=== PATIENT | male | born 1935 ===

== ENCOUNTER 2022-01-23 11:26 | Emergency (ER) | payer OTHER, SELFPAY ==
[2022-01-23 11:42] VITALS: BP 119/61; PULSE 75; RESP 28; TEMP 38.1; O2SAT 97; BMI 23.7
--- NOTE | 2022-01-23 11:56 | DI.RAD.S_ITS ---
PROCEDURE: XR CHEST 1V INDICATIONS: suspected sepsis TECHNIQUE: One view of the chest was acquired. COMPARISON: [facility], CR, XR CHEST 1 VIEW, 10/20/2020, 1:35. FINDINGS: Surgical changes and devices: None. Lungs and pleura: Lungs are clear. No pleural effusions or pneumothorax. Mediastinum: Mediastinal contours appear normal. Heart size is normal. Bones and chest wall: No suspicious bony lesions. Overlying soft tissues appear unremarkable. Rotator cuff tendon repair of the right shoulder. IMPRESSION: No acute cardiopulmonary disease. Dictated by: Shelli Red M.D. on 01/23/2022 at 12:31 Approved by: Shelli Red M.D. on 01/23/2022 at 12:32
[2022-01-23 12:11] LABS: Add Manual Diff / Slide Review NO; Basophils Absolute Auto 0 /uL (0-100); Basophils Percent Auto 0.2 % (0-2); Eosinophils Absolute Auto 0 /uL (0-450); Eosinophils Percent Auto 0.4 % (2-4); Lymphocytes Absolute Auto 600 /uL (1100-4500); Lymphocytes Percent Auto 10.8 % (25-40); Mean Corpuscular HGB Conc 33.4 % (30-36); Mean Corpuscular Hemoglobin 32.4 PG (26-34); Mean Corpuscular Volume 97.1 fL (80-100); Monocytes Absolute Auto 600 /uL (0-900); Monocytes Percent Auto 10.6 % (3-14); Neutrophils Absolute Auto 4600 /uL (1500-7000); Platelet Count 176 X10^3/uL (150-400); Red Blood Cell Count 4.32 X10^6/uL (4.5-5.9); Red Cell Distribution Width 13.3 % (11.6-14.8); White Blood Cell Count 5.8 X10^3/uL (4.5-11.0)
[2022-01-23] MEDS: ACETAMINOPHEN 325 MG TABLET 650 MG PO (12:13)
[2022-01-23] MEDS: SODIUM CHLORIDE 0.9% 1,000 ML 1000 ML IV (12:14)
[2022-01-23 12:17] LABS: INR 1.1 (0.9-1.3); Prothrombin Time 12.4 SECONDS (10.1-12.7)
[2022-01-23 12:20] LABS: PTT Partial Thromboplastin Tim 31 SECONDS (26.4-36.2)
[2022-01-23 12:22] LABS: Alanine Aminotransferase 25 IU/L (<50); Albumin 4.4 g/dL (3.5-5.0); Albumin Globulin Ratio 1.5 (1.0-2.8); Alkaline Phosphatase 61 U/L (38-126); Aspartate Aminotransferase 40 IU/L (17-59); BUN Creatinine Ratio 20.8 (6-22); Bilirubin Total 0.9 mg/dL (0.2-1.3); Blood Urea Nitrogen 27 mg/dL (9-20); Calcium 8.8 mg/dL (8.4-10.2); Carbon Dioxide 26 mmol/L (22-32); Chloride 101 mmol/L (98-107); Estimated Glomerular Filt Rate 52.5 mL/min (>60); Globulin 2.9 g/dL (1.7-4.1); Glucose 121 mg/dL (80-110); HEMOLYSIS < 15 (0-50); Lactate (Lactic Acid) 1.4 mmol/L (0.7-2.1); Lipase 126 U/L (23-300); Potassium 4.4 mmol/L (3.4-5.1); Sodium 134 mmol/L (137-145); Total Protein 7.3 g/dL (6.3-8.2)
[2022-01-23 12:39] LABS: Procalcitonin 0.21 ng/mL (<0.5)
--- NOTE | 2022-01-23 12:59 | ED_ITS ---
HPI - Fever <Med Tabares PA-C - Last Filed: 01/23/22 19:38> General Chief Complaint: Fever Stated Complaint: Thinks pneumonia x 3 days- Chills, no appetite Time Seen by Provider: 01/23/22 12:37 Source: patient Mode of arrival: Wheelchair History of Present Illness HPI Narrative: Patient is a an 86-year-old male presenting to the emergency department today for evaluation fever and chills. Patient states that on Sunday he began to experience a sore throat, noting that over the past 3 days he has developed a fever, chills, cough, generalized weakness, and decreased PO intake. Patient states that he is experiencing chills so significantly that he has been shaking at home. Of note, patient denies any recent vaccinations, surgeries, or hospitalizations. No known sick contacts reported. Patient denies chest pain, shortness of breath, nausea, vomiting, diarrhea, abdominal pain, constipation, dysuria, hematuria, numbness and tingling in the extremities, changes in vision, changes in hearing, dizziness, decreased urine production, or any other concerning symptoms. No further concerns are voiced at this time. Related Data Home Medications Medication Instructions Recorded Confirmed atorvastatin 40 mg tablet 40 mg PO DAILY 09/29/20 11/15/21 cholecalciferol (vitamin D3) 50 50 mcg PO DAILY 09/29/20 11/15/21 mcg (2,000 unit) capsule clopidogrel 75 mg tablet 75 mg PO DAILY 09/29/20 11/15/21 gabapentin 300 mg capsule 300 mg PO DAILY 09/29/20 11/15/21 levothyroxine 25 mcg tablet 25 mcg PO DAILY 09/29/20 11/15/21 lisinopril 10 mg tablet 10 mg PO DAILY 09/29/20 11/15/21 Previous Rx's Medication Instructions Recorded potassium citrate 15 mEq (1,620 15 meq PO BID #180 tab 12/19/21 mg) tablet,extended release Allergies Allergy/AdvReac Type Severity Reaction Status Date / Time No Known Drug Allergies Allergy Verified 01/23/22 11:48 Review of Systems <Med Tabares PA-C - Last Filed: 01/23/22 19:38> Constitutional Constitutional: Reports chills, Denies fatigue, Reports fever(s), Denies frequent falls, Denies lethargy, Reports weakness and Reports other (Decreased PO intake) Eyes Eyes: Denies loss of vision ENT Ears, Nose, Mouth, and Throat: Denies change in voice, Denies dizziness, Denies neck pain, Reports sore throat and Denies throat swelling Cardiovascular Cardiovascular: Denies chest pain, Denies irregular heart rhythm, Denies lightheadedness, Denies palpitations, Denies dyspnea, Denies dyspnea on exertion and Denies orthopnea Respiratory Respiratory: Reports cough, Denies dyspnea, Denies dyspnea on exertion and Denies wheezing Gastrointestinal Gastrointestinal: Denies abdominal pain, Denies change in bowel habits, Denies diarrhea, Denies nausea and Denies vomiting Genitourinary Genitourinary: Denies hematuria, Denies flank pain, Denies urinary incontinence and Denies urinary urgency Musculoskeletal Musculoskeletal: Denies back pain, Denies muscle weakness, Denies neck pain, Denies numbness and Denies tingling Integumentary/Breasts Skin/Breast: Denies pruritus, Denies erythema, Denies rash and Denies wounds Neurologic Neurologic: Denies behavioral changes, Denies confusion, Denies dizziness, Denies frequent falls, Denies loss of vision, Denies numbness, Denies tingling and Reports weakness Psychiatric Psychiatric: Denies behavioral changes and Denies confusion Endocrine Endocrine: Denies fatigue and Denies palpitations Allergic/Immunologic Allergic/Immunologic: Denies throat swelling and Denies wheezing Patient History <Med Tabares PA-C - Last Filed: 01/23/22 19:38> Medical History Bilateral nephrolithiasis Calcium nephrolithiasis History of nephrolithotomy with removal of calculi Hypertension Kidney stones Prostate cancer Recurrent prostate cancer Surgical History H/O circumcision H/O lithotripsy H/O prostatectomy H/O vasectomy History of coronary artery stent placement History of prostate biopsy Family History Mother Cancer Social History marital status: number of children: 5 occupational status: previously employed Smoking Status: Never smoker alcohol intake: never caffeine: Yes Smoking Status: Never smoker alcohol intake frequency: 0-2 drinks per day Substance Use Type: does not use Exam <Med Tabares PA-C - Last Filed: 01/23/22 19:38> Narrative Exam Narrative: GENERAL: 86 year old patient appears stated age. Well-developed patient, in no acute distress. Appears tired. HEAD: Atraumatic. Normocephalic. EYES: Pupils equal round and reactive. Extraocular motions intact. No scleral icterus. No injection or drainage. ENT: Nose without bleeding, purulent drainage. Throat without erythema, tonsillar hypertrophy or exudate. Airway patent. NECK: Trachea midline. Non tender CARDIOVASCULAR: Regular rate and rhythm without murmurs, gallops, or rubs. RESPIRATORY: Clear to auscultation. Breath sounds equal bilaterally. No wheezes, rales, or rhonchi. GASTROINTESTINAL: Abdomen soft, non-tender, nondistended. EXTREMITIES: No edema or joint tenderness. BACK: Nontender without deformity or crepitance. No flank tenderness. NEURO: AOx3. SKIN: No rash or erythema of visible areas Initial Vital Signs Initial Vital Signs: Vital Signs Temperature 100.5 F H 01/23/22 11:42 Pulse Rate 75 01/23/22 11:42 Respiratory Rate 28 H 01/23/22 11:42 Blood Pressure 119/61 01/23/22 11:42 Pulse Oximetry 97 01/23/22 11:42 <Prakash Gore DO - Last Filed: 01/24/22 14:51> Initial Vital Signs Initial Vital Signs: Vital Signs Temperature 100.5 F H 01/23/22 11:42 Pulse Rate 75 01/23/22 11:42 Respiratory Rate 28 H 01/23/22 11:42 Blood Pressure 119/61 01/23/22 11:42 Pulse Oximetry 97 01/23/22 11:42 Course <Med Tabares PA-C - Last Filed: 01/23/22 19:38> Course Course Narrative: CBC, CMP, lactate, lipase, PT/INR, PTT, procalcitonin, respiratory panel, blood cultures, BNP, urinalysis, troponin, chest x-ray obtained. Orders Ordered: Discontinued Medications Acetaminophen (Acetaminophen 325 Mg Tablet) 650 mg PO NOW ONE Stop: 01/23/22 12:07 Last Admin: 01/23/22 12:13 Dose: 650 mg Documented by: ATAYLOR Sodium Chloride (Normal Saline 0.9%) 1,000 mls @ 1,000 mls/hr IV BOLUS ONE Stop: 01/23/22 12:55 Last Infusion: 01/23/22 14:10 Dose: 0 mls/hr Documented by: Admin: 01/23/22 12:14 Dose: 1,000 mls/hr Documented by: SALO Vital Signs Vital signs: Vital Signs - 8 hr 01/23/22 11:42 01/23/22 13:15 01/23/22 13:46 Temperature 100.5 F H 99.2 F Pulse Rate 75 67 Respiratory Rate 28 H 18 Blood Pressure 119/61 110/67 Pulse Oximetry 97 94 01/23/22 13:48 01/23/22 14:05 Temperature 99.2 F Pulse Rate 55 L 60 Respiratory Rate 18 18 Blood Pressure 115/58 L 123/65 Pulse Oximetry 96 95 <Prakash Gore DO - Last Filed: 01/24/22 14:51> Orders Ordered: Discontinued Medications Acetaminophen (Acetaminophen 325 Mg Tablet) 650 mg PO NOW ONE Stop: 01/23/22 12:07 Last Admin: 01/23/22 12:13 Dose: 650 mg Documented by: ATAYLOR Sodium Chloride (Normal Saline 0.9%) 1,000 mls @ 1,000 mls/hr IV BOLUS ONE Stop: 01/23/22 12:55 Last Infusion: 01/23/22 14:10 Dose: 0 mls/hr Documented by: Admin: 01/23/22 12:14 Dose: 1,000 mls/hr Documented by: SALO Vital Signs Vital signs: Vital Signs - 8 hr 01/23/22 11:42 01/23/22 13:15 01/23/22 13:46 Temperature 100.5 F H 99.2 F Pulse Rate 75 67 Respiratory Rate 28 H 18 Blood Pressure 119/61 110/67 Pulse Oximetry 97 94 01/23/22 13:48 01/23/22 14:05 Temperature 99.2 F Pulse Rate 55 L 60 Respiratory Rate 18 18 Blood Pressure 115/58 L 123/65 Pulse Oximetry 96 95 MDM - Fever <Med Tabares PA-C - Last Filed: 01/23/22 19:38> Lab Data Result diagrams: 01/23/22 12:00 04/11/22 12:00 Labs: Lab Results 01/23/22 01/23/22 01/23/22 Range/Units 11:49 12:00 12:00 WBC 5.8 (4.5-11.0) X10^3/uL RBC 4.32 L (4.5-5.9) X10^6/uL Hgb 14.0 (13.5-17.5) g/dL Hct 42.0 (41-53) % MCV 97.1 (80-100) fL MCH 32.4 (26-34) PG MCHC 33.4 (30-36) % RDW 13.3 (11.6-14.8) % Plt Count 176 (150-400) X10^3/uL Neut % (Auto) 78.0 H (50-75) % Lymph % (Auto) 10.8 L (25-40) % [place] % (Auto) 10.6 (3-14) % Eos % (Auto) 0.4 L (2-4) % Baso % (Auto) 0.2 (0-2) % Neut # (Auto) 4600 (9534-2008) /uL Lymph # (Auto) 600 L (1859-5985) /uL [place] # (Auto) 600 (0-900) /uL Eos # (Auto) 0 (0-450) /uL Baso # (Auto) 0 (0-100) /uL PT 12.4 (10.1-12.7) SECONDS INR 1.1 (0.9-1.3) APTT 31 (26.4-36.2) SECONDS Sodium (137-145) mmol/L Potassium (3.4-5.1) mmol/L Chloride (98-107) mmol/L Carbon Dioxide (22-32) mmol/L BUN (9-20) mg/dL Creatinine (0.66-1.25) mg/dL Estimated GFR (>60) mL/min BUN/Creatinine Ratio (6-22) Glucose (80-110) mg/dL Lactate (0.7-2.1) mmol/L Calcium (8.4-10.2) mg/dL Total Bilirubin (0.2-1.3) mg/dL AST (17-59) IU/L ALT (<50) IU/L Alkaline Phosphatase (38-126) U/L Total Creatine Kinase (55-170) U/L CK-MB (CK-2) (<2.37) ng/mL CK-MB (CK-2) Rel Index (1.5-5.0) % Troponin I (0.01-0.034) ng/mL NT-Pro-B Natriuret Pep (<450) pg/mL Total Protein (6.3-8.2) g/dL Albumin (3.5-5.0) g/dL Globulin (1.7-4.1) g/dL Albumin/Globulin Ratio (1.0-2.8) Lipase (23-300) U/L Procalcitonin (<0.5) ng/mL Chlamy pneumoniae PCR Not detected (Not Detect) Adenovirus (PCR) Not detected (Not Detect) B. pertussis DNA (PCR) Not detected (Not Detecte) B.parapertussis DNA PCR Not detected (Not Detecte) Coronavirus OC43 (PCR) Not detected (Not Detect) Coronavirus HKU1 (PCR) Not detected (Not Detect) Coronavirus 229E (PCR) Not detected (Not Detect) SARS-CoV-2 (PCR) Not detected (Not Detecte) Coronavirus NL63 (PCR) Not detected (Not Detect) Human Metapneumovir PCR Detected H (Not Detect) Influenza Type A (PCR) Not detected (Not Detect) Influenza Type B (PCR) Not detected (Not Detect) M. pneumoniae (PCR) Not detected (Not Detect) Parainfluenza 1 (PCR) Not detected (Not Detect) Parainfluenza 2 (PCR) Not detected (Not Detect) Parainfluenza 3 (PCR) Not detected (Not Detect) Parainfluenza 4 (PCR) Not detected (Not Detect) RSV (PCR) Not detected (Not Detect) Entero/Rhino (PCR) Not detected (Not Detect) 01/23/22 01/23/22 01/23/22 Range/Units 12:00 12:00 12:00 WBC (4.5-11.0) X10^3/uL RBC (4.5-5.9) X10^6/uL Hgb (13.5-17.5) g/dL Hct (41-53) % MCV (80-100) fL MCH (26-34) PG MCHC (30-36) % RDW (11.6-14.8) % Plt Count (150-400) X10^3/uL Neut % (Auto) (50-75) % Lymph % (Auto) (25-40) % [place] % (Auto) (3-14) % Eos % (Auto) (2-4) % Baso % (Auto) (0-2) % Neut # (Auto) (5570-2207) /uL Lymph # (Auto) (4564-5385) /uL [place] # (Auto) (0-900) /uL Eos # (Auto) (0-450) /uL Baso # (Auto) (0-100) /uL PT (10.1-12.7) SECONDS INR (0.9-1.3) APTT (26.4-36.2) SECONDS Sodium 134 L (137-145) mmol/L Potassium 4.4 (3.4-5.1) mmol/L Chloride 101 (98-107) mmol/L Carbon Dioxide 26 (22-32) mmol/L BUN 27 H (9-20) mg/dL Creatinine 1.30 H (0.66-1.25) mg/dL Estimated GFR 52.5 L (>60) mL/min BUN/Creatinine Ratio 20.8 (6-22) Glucose 121 H (80-110) mg/dL Lactate 1.4 (0.7-2.1) mmol/L Calcium 8.8 (8.4-10.2) mg/dL Total Bilirubin 0.9 (0.2-1.3) mg/dL AST 40 (17-59) IU/L ALT 25 (<50) IU/L Alkaline Phosphatase 61 (38-126) U/L Total Creatine Kinase 195 H (55-170) U/L CK-MB (CK-2) 0.56 (<2.37) ng/mL CK-MB (CK-2) Rel Index 0.3 L (1.5-5.0) % Troponin I < 0.012 (0.01-0.034) ng/mL NT-Pro-B Natriuret Pep 120 (<450) pg/mL Total Protein 7.3 (6.3-8.2) g/dL Albumin 4.4 (3.5-5.0) g/dL Globulin 2.9 (1.7-4.1) g/dL Albumin/Globulin Ratio 1.5 (1.0-2.8) Lipase 126 (23-300) U/L Procalcitonin 0.21 (<0.5) ng/mL Chlamy pneumoniae PCR (Not Detect) Adenovirus (PCR) (Not Detect) B. pertussis DNA (PCR) (Not Detecte) B.parapertussis DNA PCR (Not Detecte) Coronavirus OC43 (PCR) (Not Detect) Coronavirus HKU1 (PCR) (Not Detect) Coronavirus 229E (PCR) (Not Detect) SARS-CoV-2 (PCR) (Not Detecte) Coronavirus NL63 (PCR) (Not Detect) Human Metapneumovir PCR (Not Detect) Influenza Type A (PCR) (Not Detect) Influenza Type B (PCR) (Not Detect) M. pneumoniae (PCR) (Not Detect) Parainfluenza 1 (PCR) (Not Detect) Parainfluenza 2 (PCR) (Not Detect) Parainfluenza 3 (PCR) (Not Detect) Parainfluenza 4 (PCR) (Not Detect) RSV (PCR) (Not Detect) Entero/Rhino (PCR) (Not Detect) Imaging Data Chest x-ray: Radiologist's Impression: PROCEDURE:? XR CHEST 1V ? INDICATIONS:? suspected sepsis ? TECHNIQUE:? One view of the chest was acquired.? ? COMPARISON:? [facility], CR, XR CHEST 1 VIEW, 10/20/2020, 1:35. ? FINDINGS:? ? Surgical changes and devices:? None.? ? Lungs and pleura:? Lungs are clear.? No pleural effusions or pneumothorax.? ? Mediastinum:? Mediastinal contours appear normal.? Heart size is normal.? ? Bones and chest wall:? No suspicious bony lesions.? Overlying soft tissues appear unremarkable.? Rotator cuff tendon repair of the right shoulder. ? IMPRESSION:? No acute cardiopulmonary disease. ? ? Dictated by: Shelli Red M.D. on 01/23/2022 at 12:31 ? ? Approved by: Shelli Red M.D. on 01/23/2022 at 12:32? MDM Narrative Medical decision making narrative: Differential diagnosis to consider but not limited to pneumonia versus bronchitis versus COPD versus viral upper respiratory infection verses urinary tract infection. I discussed results lab studies and imaging performed in the emergency department with the patient and informed him that he did result positive for metapneumovirus on his respiratory panel. I informed him that the remainder of his lab studies obtained today returned within normal limits without any signs of acute abnormality that would require emergent intervention or admission to the hospital. I encouraged the patient to continue using [id number] medications to treat his symptoms. He expresses understanding and agrees to plan. He states he is comfortable being discharged home at this time and he is stable for discharge. Strict return precautions were discussed with the patient prior to discharge. I urged him to ensure that he is staying well hydrated throughout the day when taking small frequent sips of fluids. <Prakash Gore, DO - Last Filed: 01/24/22 14:51> Lab Data Labs: Lab Results 01/23/22 01/23/22 01/23/22 Range/Units 11:49 12:00 12:00 WBC 5.8 (4.5-11.0) X10^3/uL RBC 4.32 L (4.5-5.9) X10^6/uL Hgb 14.0 (13.5-17.5) g/dL Hct 42.0 (41-53) % MCV 97.1 (80-100) fL MCH 32.4 (26-34) PG MCHC 33.4 (30-36) % RDW 13.3 (11.6-14.8) % Plt Count 176 (150-400) X10^3/uL Neut % (Auto) 78.0 H (50-75) % Lymph % (Auto) 10.8 L (25-40) % [place] % (Auto) 10.6 (3-14) % Eos % (Auto) 0.4 L (2-4) % Baso % (Auto) 0.2 (0-2) % Neut # (Auto) 4600 (5954-3319) /uL Lymph # (Auto) 600 L (2403-0869) /uL [place] # (Auto) 600 (0-900) /uL Eos # (Auto) 0 (0-450) /uL Baso # (Auto) 0 (0-100) /uL PT 12.4 (10.1-12.7) SECONDS INR 1.1 (0.9-1.3) APTT 31 (26.4-36.2) SECONDS Sodium (137-145) mmol/L Potassium (3.4-5.1) mmol/L Chloride (98-107) mmol/L Carbon Dioxide (22-32) mmol/L BUN (9-20) mg/dL Creatinine (0.66-1.25) mg/dL Estimated GFR (>60) mL/min BUN/Creatinine Ratio (6-22) Glucose (80-110) mg/dL Lactate (0.7-2.1) mmol/L Calcium (8.4-10.2) mg/dL Total Bilirubin (0.2-1.3) mg/dL AST (17-59) IU/L ALT (<50) IU/L Alkaline Phosphatase (38-126) U/L Total Creatine Kinase (55-170) U/L CK-MB (CK-2) (<2.37) ng/mL CK-MB (CK-2) Rel Index (1.5-5.0) % Troponin I (0.01-0.034) ng/mL NT-Pro-B Natriuret Pep (<450) pg/mL Total Protein (6.3-8.2) g/dL Albumin (3.5-5.0) g/dL Globulin (1.7-4.1) g/dL Albumin/Globulin Ratio (1.0-2.8) Lipase (23-300) U/L Procalcitonin (<0.5) ng/mL Chlamy pneumoniae PCR Not detected (Not Detect) Adenovirus (PCR) Not detected (Not Detect) B. pertussis DNA (PCR) Not detected (Not Detecte) B.parapertussis DNA PCR Not detected (Not Detecte) Coronavirus OC43 (PCR) Not detected (Not Detect) Coronavirus HKU1 (PCR) Not detected (Not Detect) Coronavirus 229E (PCR) Not detected (Not Detect) SARS-CoV-2 (PCR) Not detected (Not Detecte) Coronavirus NL63 (PCR) Not detected (Not Detect) Human Metapneumovir PCR Detected H (Not Detect) Influenza Type A (PCR) Not detected (Not Detect) Influenza Type B (PCR) Not detected (Not Detect) M. pneumoniae (PCR) Not detected (Not Detect) Parainfluenza 1 (PCR) Not detected (Not Detect) Parainfluenza 2 (PCR) Not detected (Not Detect) Parainfluenza 3 (PCR) Not detected (Not Detect) Parainfluenza 4 (PCR) Not detected (Not Detect) RSV (PCR) Not detected (Not Detect) Entero/Rhino (PCR) Not detected (Not Detect) 01/23/22 01/23/22 01/23/22 Range/Units 12:00 12:00 12:00 WBC (4.5-11.0) X10^3/uL RBC (4.5-5.9) X10^6/uL Hgb (13.5-17.5) g/dL Hct (41-53) % MCV (80-100) fL MCH (26-34) PG MCHC (30-36) % RDW (11.6-14.8) % Plt Count (150-400) X10^3/uL Neut % (Auto) (50-75) % Lymph % (Auto) (25-40) % [place] % (Auto) (3-14) % Eos % (Auto) (2-4) % Baso % (Auto) (0-2) % Neut # (Auto) (4751-0415) /uL Lymph # (Auto) (6669-7645) /uL [place] # (Auto) (0-900) /uL Eos # (Auto) (0-450) /uL Baso # (Auto) (0-100) /uL PT (10.1-12.7) SECONDS INR (0.9-1.3) APTT (26.4-36.2) SECONDS Sodium 134 L (137-145) mmol/L Potassium 4.4 (3.4-5.1) mmol/L Chloride 101 (98-107) mmol/L Carbon Dioxide 26 (22-32) mmol/L BUN 27 H (9-20) mg/dL Creatinine 1.30 H (0.66-1.25) mg/dL Estimated GFR 52.5 L (>60) mL/min BUN/Creatinine Ratio 20.8 (6-22) Glucose 121 H (80-110) mg/dL Lactate 1.4 (0.7-2.1) mmol/L Calcium 8.8 (8.4-10.2) mg/dL Total Bilirubin 0.9 (0.2-1.3) mg/dL AST 40 (17-59) IU/L ALT 25 (<50) IU/L Alkaline Phosphatase 61 (38-126) U/L Total Creatine Kinase 195 H (55-170) U/L CK-MB (CK-2) 0.56 (<2.37) ng/mL CK-MB (CK-2) Rel Index 0.3 L (1.5-5.0) % Troponin I < 0.012 (0.01-0.034) ng/mL NT-Pro-B Natriuret Pep 120 (<450) pg/mL Total Protein 7.3 (6.3-8.2) g/dL Albumin 4.4 (3.5-5.0) g/dL Globulin 2.9 (1.7-4.1) g/dL Albumin/Globulin Ratio 1.5 (1.0-2.8) Lipase 126 (23-300) U/L Procalcitonin 0.21 (<0.5) ng/mL Chlamy pneumoniae PCR (Not Detect) Adenovirus (PCR) (Not Detect) B. pertussis DNA (PCR) (Not Detecte) B.parapertussis DNA PCR (Not Detecte) Coronavirus OC43 (PCR) (Not Detect) Coronavirus HKU1 (PCR) (Not Detect) Coronavirus 229E (PCR) (Not Detect) SARS-CoV-2 (PCR) (Not Detecte) Coronavirus NL63 (PCR) (Not Detect) Human Metapneumovir PCR (Not Detect) Influenza Type A (PCR) (Not Detect) Influenza Type B (PCR) (Not Detect) M. pneumoniae (PCR) (Not Detect) Parainfluenza 1 (PCR) (Not Detect) Parainfluenza 2 (PCR) (Not Detect) Parainfluenza 3 (PCR) (Not Detect) Parainfluenza 4 (PCR) (Not Detect) RSV (PCR) (Not Detect) Entero/Rhino (PCR) (Not Detect) Discharge Plan Departure Patient Disposition: Home Clinical Impression: Upper respiratory infection, viral, Infection due to human metapneumovirus (hMPV) Instructions: DI for Viral Upper Respiratory Infection -- Adult Activity Restrictions/Additional Instructions: *You have been diagnosed with viral upper respiratory infection, metapneumovirus infection *What to do: *Please continue to take your regular medications as directed. [ ] New medication prescriptions sent to your pharmacy: [ ] [ ] New medication written as a paper prescription [X] No new medications given You were evaluated in the emergency department today for fever, chills, cough, and weakness. Lab studies performed in the emergency department today it shows signs metapneumovirus infection, with the remainder of her lab studies returning within normal limits without any signs of acute abnormality that would require emergent intervention or admission to the hospital. Chest x-ray obtained in the emergency department today did not show signs of acute cardiopulmonary abnormality such as pneumonia. I encourage you to continue using [id number] medications at home to treat his symptoms, you can continue using Tylenol for fever and Robitussin for cough for example. Please follow-up with the primary care provider within the next 2-3 days for further evaluation. Please do not hesitate to return to the emergency department if you experience increasing fever, difficulty breathing, significant shortness of breath, chest pain, the worsening weakness, or any other concerning symptoms. *Please follow up with your primary care provider in 2-3 days, call for an appointment. Let them know you were seen in the Emergency Department and that we ask that you be seen in follow up. We will electronically transmit a record of today's note if your PCP is in our system *If you do not have a primary care provider please contact the [facility] Resource line at [phone]. They will ask some questions about your medical history and help get you set up with a doctor in the community. *Return to Emergency Department if you should have any new, worsening or concerning symptoms, such as fever greater than 101 F, shaking chills, worsening pain, persistent vomiting or other bothersome symptoms. Prescriptions: No Action atorvastatin 40 mg tablet 40 mg PO DAILY 0RF clopidogrel 75 mg tablet 75 mg PO DAILY 0RF lisinopril 10 mg tablet 10 mg PO DAILY 0RF levothyroxine 25 mcg tablet 25 mcg PO DAILY 0RF gabapentin 300 mg capsule 300 mg PO DAILY 0RF cholecalciferol (vitamin D3) 50 mcg (2,000 unit) capsule 50 mcg PO DAILY 0RF potassium citrate 15 mEq tablet extended release 15 meq PO BID Qty: 180 3RF Referrals: Carlos Storm MD [Primary Care Provider] - <Prakash Dafter, DO - Last Filed: 01/24/22 14:51> Cosign ED Attending Cosignature Attestation: I was immediately available in the department for consultation. This documentation has been reviewed and I agree with assessment and plan. Supervised by Prakash Gore DO
[2022-01-23 13:11] LABS: Creatine Kinase 195 U/L (55-170)
[2022-01-23 13:15] VITALS: BP 110/67; PULSE 67; RESP 18; O2SAT 94
[2022-01-23 13:24] LABS: NT-proBNP (BNP-Adult 18+) 120 pg/mL (<450); Troponin I < 0.012 ng/mL (0.01-0.034)
[2022-01-23 13:26] LABS: CKMB % Relative Index 0.3 % (1.5-5.0); Creatine Kinase MB 0.56 ng/mL (<2.37)
[2022-01-23 13:42] LABS: Adenovirus Not Detected (Not Detect); B. parapertussis Not Detected (Not Detecte); Bordetella pertussis Not Detected (Not Detecte); Chlamydophila pneumoniae Not Detected (Not Detect); Coronavirus 229E Not Detected (Not Detect); Coronavirus HKU1 Not Detected (Not Detect); Coronavirus NL 63 Not Detected (Not Detect); Coronavirus OC43 Not Detected (Not Detect); Human Metapneumovirus Detected (Not Detect); Human Rhinovirus/Enterovirus Not Detected (Not Detect); Influenza A Not Detected (Not Detect); Influenza B Not Detected (Not Detect); Mycoplasma pneumoniae Not Detected (Not Detect); Parainfluenza Virus 1 Not Detected (Not Detect); Parainfluenza Virus 2 Not Detected (Not Detect); Parainfluenza Virus 3 Not Detected (Not Detect); Parainfluenza Virus 4 Not Detected (Not Detect); Respiratory Syncytial Virus Not Detected (Not Detect); SARS- CoV-2 Not Detected (Not Detecte)
[2022-01-23 13:46] VITALS: TEMP 37.3
[2022-01-23 13:48] VITALS: BP 115/58; PULSE 55; RESP 18; TEMP 37.3; O2SAT 96
[2022-01-23 14:05] VITALS: BP 123/65; PULSE 60; RESP 18; O2SAT 95
== END 2022-01-23 14:24 | disposition home or self-care (01) ==
PROVIDERS: Emergency Medicine; Emergency Provider Physician Assistant; PCP Family Medicine
DX: J06.9 Acute upper respiratory infection, unspecified (principal); B97.81 Human metapneumovirus as the cause of diseases classified elsewhere
CPT/HCPCS: 36415; 71045; 80053; 82550; 82553; 83605; 83690; 83880; 84145; 84484; 85025; 85610; 85730; 87040; 87633; 93005; 93010; 96360; 96361; 99284

== ENCOUNTER → 2023-06-06 08:28 | Outpatient (CLI) | payer OTHER, SELFPAY ==
--- NOTE | 2023-06-06 08:31 | DI.CT.S_ITS ---
PROCEDURE: CT CHEST ABD PEL W CON INDICATIONS: Malignant neoplasm of prostate TECHNIQUE: After the administration of oral and intravenous contrast, axial sections acquired from the supraclavicular neck to the pubic symphysis. Coronal and sagittal reformats were performed. For radiation dose reduction, the following was used: automated exposure control, adjustment of mA and/or kV according to patient size. COMPARISON: [facility], CT, CT CHEST ABD PELVIS W CON, 08/03/2015, 11:24. [facility], CT, CT ABDOMEN PELVIS WITH CONTRAST, 06/03/2018, 1:27. FINDINGS: Image quality: Good Lungs and pleura: Basal scarring/atelectasis. No overtly suspicious pulmonary nodule, dense airspace disease, or pleural effusion. Mediastinum, heart, and esophagus: No hiatal hernia. Normal heart size. Again seen are multiple prominent mediastinal lymph nodes, possibly reactive. There are coronary calcifications. Chest wall and thyroid: Unremarkable Solid organs: Subcentimeter lesions are too small to characterize the, likely stable small cysts. Gallbladder is unremarkable. No pathologic biliary ductal dilation or pancreatic ductal dilation. There is an increased cystic lesion at the pancreatic head measuring up to 1.4 centimeters (2/67). Spleen measures at the upper limit of normal, 13 centimeters. No discrete adrenal nodule. 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 The no hydronephrosis. Vessels and lymph nodes: Ectatic distal abdominal aorta, which is tortuous. No lymph nodes identified enlarged by CT size criteria. Bowel and peritoneum: No bowel obstruction, pathologic ascites, or abscess. Body wall: Unremarkable Pelvis: Bladder is unremarkable. Post treatment changes of the prostate. Bones: Degenerative changes. No acute finding. IMPRESSION: No definite active disease identified. If there is sufficient clinical concern, consider bone scan to evaluate for osseous disease. Referral for PSMA PET could also be obtained. Increased cystic lesion at the pancreatic head, attention on follow-up CT, versus further evaluation with abdominal MRI. This measures up to 1.4 centimeters. Multiple other incidental and stable findings above. Dictated by: Kulwant Parker M.D. on 06/06/2023 at 15:00 Approved by: Kulwant Parker M.D. on 06/06/2023 at 15:10
[2023-06-06 09:09] LABS: BUN Creatinine Ratio 18.9 (6-22); Blood Urea Nitrogen 23 mg/dL (9-20); Calcium 9.3 mg/dL (8.4-10.2); Carbon Dioxide 28 mmol/L (22-32); Chloride 106 mmol/L (98-107); Estimated Glomerular Filt Rate 58 mL/min (>60); Glucose 101 mg/dL (80-110); HEMOLYSIS < 15 (0-50); Potassium 4.8 mmol/L (3.4-5.1); Sodium 139 mmol/L (137-145)
== END ==
PROVIDERS: PCP Family Medicine; Referring Provider Specialist; Visit Provider Specialist
DX: C61 Malignant neoplasm of prostate (principal); I77.811 Abdominal aortic ectasia; K86.9 Disease of pancreas, unspecified; N28.9 Disorder of kidney and ureter, unspecified; R59.0 Localized enlarged lymph nodes; I25.10 Atherosclerotic heart disease of native coronary artery without angina pectoris
CPT/HCPCS: 36415; 71260; 74177; 80048; Q9967

== ENCOUNTER → 2023-06-14 10:36 | Outpatient (CLI) | payer OTHER, SELFPAY ==
--- NOTE | 2023-06-14 10:37 | DI.NM.S_ITS ---
PROCEDURE: [place] BONE SCAN WHOLE BODY RADIOPHARMACEUTICAL: 19.7 mCi Tc-99m MDP IV. INDICATIONS: localized carcinoma the prostate. Rising PSA. TECHNIQUE: Delayed whole-body scintigrams were obtained approximately 3-4 hours after intravenous injection of radiotracer. Anterior and posterior views were acquired from vertex to feet. Additional left and right oblique views of the pelvis were obtained. COMPARISON: [facility], CT, CT CHEST ABD PELVIS W CON, 08/03/2015, 11:24. [facility], [place], [place] BONE SCAN WHOLE BODY, 08/03/2015, 13:32. [facility], CT, CT CHEST ABD PEL W CON, 06/06/2023, 10:44. FINDINGS: No lesions are identified in skull, clavicles, scapulae, ribs, bony pelvis, and visualized shafts of the long bones. Sternum appears slightly irregular with no abnormal focal increased uptake, indeterminate but most likely benign. There are foci of increased uptake in cervical, thoracic and lumbar spine most likely secondary to degenerative disc and facet disease; early metastasis to spine could be obscured by degenerative changes. Mild scoliosis. There are foci of increased periarticular activity most pronounced in shoulders and wrists, compatible with degenerative/arthritic changes. IMPRESSION: No definitive scintigraphic findings to suggest metastasis. Consider PSMA PET CT if clinically indicated. Dictated by: Shelli Red M.D. on 06/14/2023 at 17:17 Approved by: Shelli Red M.D. on 06/15/2023 at 10:08
== END ==
PROVIDERS: PCP Family Medicine; Referring Provider Specialist; Visit Provider Specialist
DX: C61 Malignant neoplasm of prostate (principal)
CPT/HCPCS: 78306; A9503